=== PATIENT | female | born 1965 | race Caucasian/White ===

== ENCOUNTER → 2022-08-06 09:05 | Outpatient (BNVA) | payer OTHER, SELFPAY | PROVIDERS: PCP Internal Medicine; Visit Provider Physician Assistant | DX: Z13.89 Encounter for screening for other disorder (principal) ==

== ENCOUNTER 2022-08-17 15:16 | Outpatient (REF) | payer OTHER, SELFPAY | END 2022-08-17 15:17 | disposition home or self-care (01) | LOC: HO.HOSX 15:16 | PROVIDERS: PCP Internal Medicine; Visit Provider Physician Assistant | DX: Z13.89 Encounter for screening for other disorder (principal) ==

== ENCOUNTER 2022-09-26 13:25 | Outpatient (REF) | payer OTHER, SELFPAY ==
--- NOTE | ~2022-09-26 | XR_ITS ---
EXAMINATION: XR PELVIS CLINICAL INFORMATION: Sacrococcygeal disorders. COMPARISON: None available. TECHNIQUE: AP view of the pelvis. FINDINGS: Patchy areas of sclerosis are noted along the sacral and iliac side of left sacroiliac joint with probable partial fusion. Right sacroiliac joint grossly appears unremarkable. Symphysis pubis and bilateral hip joints are intact. Mild arthritic changes are noted at the bilateral hip joints with narrowing of the joint space and subarticular sclerosis. Mild lower lumbar spondylosis. XR/XR pelvis min 3V IMPRESSION: Patchy sclerosis along the sacral and iliac side of the left sacroiliac joint with probable partial fusion. Findings may suggest sequela of unilateral sacroiliitis.
== END 2022-09-26 13:26 | disposition home or self-care (01) ==
LOC: HO.HOSX 13:25
PROVIDERS: Visit Provider Neurological Surgery
DX: M53.3 Sacrococcygeal disorders, not elsewhere classified (principal); G89.29 Other chronic pain
CPT/HCPCS: 72190